=== PATIENT | female | born 1990 | race Caucasian/White ===

== ENCOUNTER 2017-02-03 21:01 | Inpatient (IN) | payer SELFPAY ==
[~2017-02-03] VITALS: Ht 167.6 cm; Wt 88.2 kg
[2017-02-03 21:04] VITALS: BP 149/104; PULSE 93; RESP 14; TEMP 97.8; O2SAT 97
[2017-02-03] MEDS ORDERED: LISI-515 PO (21:11)
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
[2017-02-03] MEDS ORDERED: ONDANSETRON HCL 4 MG/2 ML VIAL IV PUSH ONE (21:30)
[2017-02-03] MEDS ORDERED: SODIUM CHLOR 0.9% 1000 ML INJ 1,000 ML IV ONE (21:30)
[2017-02-03 21:31] VITALS: BP 137/77; PULSE 88; RESP 16; O2SAT 99
[2017-02-03 21:43] LABS: AUTOMATED NEUTROPHIL # 16.3 TH/MM3 (1.8-7.7); BASOPHIL # 0.1 TH/MM3 (0-0.2); BASOPHIL % 0.2 % (0.0-2.0); EOSINOPHIL % 0.1 % (0.0-4.0); HEMO FLAGS DIFF FINAL; LYMPH % 17.3 % (9.0-44.0); LYMPHOCYTE # 3.6 TH/MM3 (1.0-4.8); MEAN CELL VOLUME 77.4 FL (80.0-100.0); MEAN CORPUSCULAR HEMOGLOBIN 24.6 PG (27.0-34.0); MEAN CORPUSCULAR HGB CONC 31.8 % (32.0-36.0); MONO % 3.2 % (0.0-8.0); NEUT % 79.2 % (16.0-70.0); PLATELET COUNT 215 TH/MM3 (150-450); RED CELL DISTRIBUTION WIDTH 15.2 % (11.6-17.2); WHITE BLOOD COUNT 20.6 TH/MM3 (4.0-11.0)
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
[2017-02-03] MEDS ORDERED: IOHEXOL 350 MG/ML 10 ML VIAL (for RAD DIAG) IV ONE (21:48)
[2017-02-03 21:52] LABS: APTT (PATIENT) 26.6 SEC (24.3-30.1); PROTHROMBIN TIME - PATIENT 10.6 SEC (9.8-11.6)
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
[2017-02-03 22:00] LABS: BICARBONATE 27.2 MEQ/L (21.0-32.0); POTASSIUM 3.6 MEQ/L (3.5-5.1)
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
--- NOTE | 2017-02-03 22:15 | RADRPT ---
EXAM DATE/TIME: 02/03/2017 22:08 [facility] COMPARISON: No previous studies available for comparison. INDICATIONS : Shortness of breath. MEDICAL HISTORY : None. SURGICAL HISTORY : None. ENCOUNTER: Initial ACUITY: 1 day PAIN SCORE: 0/10 LOCATION: chest FINDINGS: A single view of the chest demonstrates the lungs to be symmetrically aerated without evidence of mas s, infiltrate or effusion. The cardiomediastinal contours are unremarkable. Osseous structures are intact. CONCLUSION: Normal examination. Tyshawn Denny MD on February 03, 2017 at 22:14 Board Certified Radiologist. This report was verified electronically.
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
[2017-02-03 22:42] LABS: BLOOD, URINE NEG (NEG); GLUCOSE,URINE NEG (NEG); KETONE, URINE 10 mg/dL (NEG); NITRITE,URINE NEG (NEG); PH, URINE 6.5 (5.0-8.5); SQUAMOUS EPITHELIAL CELL URINE 1 /hpf (0-5); URINE COLOR LIGHT-YELLOW (YELLW/STRAW)
[2017-02-03] MEDS ORDERED: CHLORHEXIDINE GLUCONATE 2 % 1 PACK (2 CLOTHS) TOP PRN (22:45)
[2017-02-03] MEDS ORDERED: ONDANSETRON HCL 4 MG/2 ML VIAL IV PRN (22:45)
[2017-02-03] MEDS ORDERED: ACETAMINOPHEN 325 MG TAB PO PRN (22:45)
[2017-02-03] MEDS ORDERED: MAGNESIUM HYDROXIDE SUSP 30 ML CUP PO PRN (22:45)
[2017-02-03] MEDS ORDERED: oxyCODONE/ACETAMINOPHEN 5 MG/325 MG TAB PO PRN (22:45)
[2017-02-03] MEDS ORDERED: SODIUM CHLORIDE 0.9% FLUSH 10 ML FLUSH IV FLUSH PRN (22:45)
[2017-02-03] MEDS ORDERED: MISCELLANEOUS NURSING INFORMATION XX SCH (22:45)
[2017-02-03] MEDS ORDERED: LACTULOSE SYRUP 20 GM/30 ML CUP PO PRN (22:45)
[2017-02-03] MEDS ORDERED: SENNOSIDES 8.6 MG TAB PO PRN (22:45)
[2017-02-03] MEDS ORDERED: BISACODYL 10 MG SUPP RECTAL PRN (22:45)
[2017-02-03 22:46] LABS: COMMENT (UR) CULT NOT INDICATED; CULTURE IF INDICATED CULT NOT INDICATED
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
[2017-02-03 22:47] LABS: AMPHETAMINE, URINE NEG (NEG); BARBITURATES, URINE NEG (NEG); COCAINE, URINE NEG (NEG)
[2017-02-03 23:11] VITALS: BP 126/57; PULSE 76; RESP 16; O2SAT 99
[2017-02-03] MEDS: oxyCODONE/ACETAMINOPHEN 5 MG/325 MG TAB PO PRN (23:14)
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
[2017-02-04] VITALS (8 sets, daily range): BP systolic 115–125; BP diastolic 56–70; PULSE 58–88; RESP 12–19; TEMP 98.1–98.5; O2SAT 98–99
[2017-02-04] MEDS: CHLORHEXIDINE GLUCONATE 2 % 1 PACK (2 CLOTHS) TOP SCH (04:00)
[2017-02-04 04:36] LABS: AUTOMATED NEUTROPHIL # 10.4 TH/MM3 (1.8-7.7); BASOPHIL % 0.3 % (0.0-2.0); HEMATOCRIT 37.8 % (35.0-46.0); HEMO FLAGS DIFF FINAL; LYMPH % 13.2 % (9.0-44.0); LYMPHOCYTE # 1.8 TH/MM3 (1.0-4.8); MEAN CELL VOLUME 77.4 FL (80.0-100.0); MEAN CORPUSCULAR HGB CONC 32.3 % (32.0-36.0); MONO % 8.7 % (0.0-8.0); NEUT % 77.8 % (16.0-70.0); PLATELET COUNT 202 TH/MM3 (150-450); RED BLOOD COUNT 4.88 MIL/MM3 (4.00-5.30); RED CELL DISTRIBUTION WIDTH 15.1 % (11.6-17.2); WHITE BLOOD COUNT 13.4 TH/MM3 (4.0-11.0)
[2017-02-04 04:49] LABS: BICARBONATE 26.9 MEQ/L (21.0-32.0); POTASSIUM 3.6 MEQ/L (3.5-5.1)
--- NOTE | 2017-02-04 06:03 | RADRPT ---
EXAM DATE/TIME: 02/04/2017 04:58 [facility] COMPARISON: CT BRAIN W/O CONTRAST, February 03, 2017, 21:44. INDICATIONS : Follow up hemorrhage. RADIATION DOSE: 35.74 CTDIvol (mGy) MEDICAL HISTORY : None SURGICAL HISTORY : None. ENCOUNTER: Subsequent ACUITY: 1 day PAIN SCALE: 6/10 LOCATION: cranial TECHNIQUE: Multiple contiguous axial images were obtained of the head. Using automated exposure control and adj ustment of the mA and/or kV according to patient size, radiation dose was kept as low as reasonably a chievable to obtain optimal diagnostic quality images. FINDINGS: CEREBRUM: There is a tiny amount of hemorrhage along the right temporal tip . The ventricles are normal for ag e. No evidence of midline shift, mass lesion, hemorrhage or acute infarction. No extra-axial fluid collections are seen. POSTERIOR FOSSA: The cerebellum and brainstem are intact. The 4th ventricle is midline. The cerebellopontine angle i s unremarkable. EXTRACRANIAL: The visualized portion of the orbits is intact. Trace fluid in the right maxillary sinus SKULL: The calvaria is intact. No evidence of skull fracture. The lucency identified previously appears to be symmetric therefore is likely a suture CONCLUSION: Very small amount of increased density along the right temporal tip subarachnoid versus small parench ymal hemorrhage. Its knob are impressive, similar to the previous study. The lucency felt to be a fra cture previously and is symmetric on today's exam therefore is likely an old suture. There is some ov erlying soft tissue swelling in the right temporal region. Mehrdad Miller MD on February 04, 2017 at 5:59 Board Certified Radiologist. This report was verified electronically.
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
[2017-02-04] MEDS: DOCUSATE SODIUM 50 MG/SENNA 8.6 MG TAB PO SCH ×2 (09:00→21:40)
[2017-02-04] MEDS: FAMOTIDINE 20 MG TAB PO SCH ×2 (09:00→21:39)
[2017-02-04] MEDS: SODIUM CHLORIDE 0.9% FLUSH 10 ML FLUSH IV FLUSH SCH ×2 (09:00→21:40)
[2017-02-04] MEDS: oxyCODONE/ACETAMINOPHEN 5 MG/325 MG TAB PO PRN ×2 (09:08→16:38)
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
[2017-02-04] MEDS: MUPIROCIN 2% OINT 1 APPLIC/GM SYR EACH NARE SCH (21:40)
[2017-02-05] VITALS: BP 112/63; PULSE 59; RESP 16; TEMP 98; O2SAT 98
[2017-02-05 04:00] VITALS: BP 107/62; PULSE 61; RESP 18; TEMP 97.8; O2SAT 98
[2017-02-05] MEDS: CHLORHEXIDINE GLUCONATE 2 % 1 PACK (2 CLOTHS) TOP SCH (04:00)
[2017-02-05 07:35] VITALS: BP 120/67; PULSE 58; RESP 17; TEMP 97.1; O2SAT 97
[2017-02-05 08:39] LABS: AUTOMATED NEUTROPHIL # 4.2 TH/MM3 (1.8-7.7); BASOPHIL # 0.1 TH/MM3 (0-0.2); BASOPHIL % 0.9 % (0.0-2.0); EOSINOPHIL # 0.2 TH/MM3 (0-0.4); HEMATOCRIT 38.7 % (35.0-46.0); HEMO FLAGS DIFF FINAL; LYMPH % 29.4 % (9.0-44.0); LYMPHOCYTE # 2.1 TH/MM3 (1.0-4.8); MEAN CELL VOLUME 78.7 FL (80.0-100.0); MEAN CORPUSCULAR HEMOGLOBIN 24.8 PG (27.0-34.0); MEAN CORPUSCULAR HGB CONC 31.5 % (32.0-36.0); MONO % 8.6 % (0.0-8.0); NEUT % 58.1 % (16.0-70.0); PLATELET COUNT 186 TH/MM3 (150-450); RED BLOOD COUNT 4.92 MIL/MM3 (4.00-5.30); WHITE BLOOD COUNT 7.2 TH/MM3 (4.0-11.0)
[2017-02-05] MEDS: FAMOTIDINE 20 MG TAB PO SCH (08:52)
[2017-02-05] MEDS: oxyCODONE/ACETAMINOPHEN 5 MG/325 MG TAB PO PRN ×2 (08:52→17:22)
[2017-02-05] MEDS: DOCUSATE SODIUM 50 MG/SENNA 8.6 MG TAB PO SCH (08:52)
[2017-02-05] MEDS: SODIUM CHLORIDE 0.9% FLUSH 10 ML FLUSH IV FLUSH SCH (08:52)
[2017-02-05 09:11] LABS: ALKALINE PHOSPHATASE 72 U/L (45-117); ALT (GPT) 21 U/L (10-53); ANION GAP 6 MEQ/L (5-15); AST (GOT) 14 U/L (15-37); BICARBONATE 29.6 MEQ/L (21.0-32.0); BLOOD UREA NITROGEN 9 MG/DL (7-18); CHLORIDE 104 MEQ/L (98-107); GLOMERULAR FILTRATION RATE 100 ML/MIN (>89); SODIUM (NA) 140 MEQ/L (136-145); TOTAL BILIRUBIN ADULT 0.6 MG/DL (0.2-1.0)
[2017-02-05] MEDS: MUPIROCIN 2% OINT 1 APPLIC/GM SYR EACH NARE SCH (09:20)
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
[2017-02-05 11:25] VITALS: BP 117/62; PULSE 69; RESP 17; TEMP 96.7; O2SAT 99
[2017-02-05 15:40] VITALS: BP 120/79; PULSE 68; RESP 17; TEMP 98; O2SAT 98
[2017-02-05] MEDS ORDERED: LISI-515 PO (15:51)
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
[2017-02-06] MEDS ORDERED: LISINOPRIL 20 MG TAB PO SCH (09:00)
== END 2017-02-05 17:35 | disposition home or self-care (01) | DRG 87 ==
LOC: NEPE 21:01 → NEDA 22:34 → N03A 23:26 → N05B 02-04 19:01
PROVIDERS: ADMIT Surgery Trauma Surgery; ATTEND Surgery Trauma Surgery
DX: S06.340A Traumatic hemorrhage of right cerebrum without loss of consciousness, initial encounter (principal); I10 Essential (primary) hypertension; S02.19XA Other fracture of base of skull, initial encounter for closed fracture; S06.0X0A Concussion without loss of consciousness, initial encounter; Y92.410 Unspecified street and highway as the place of occurrence of the external cause; V27.0XXA Motorcycle driver injured in collision with fixed or stationary object in nontraffic accident, initial encounter
CPT/HCPCS: 70450; 71010; 71260; 72125; 72128; 72131; 74177; 80048; 80053; 80307; 81001; 84703; 85025; 85610; 85730; 87641; 94150; 96361; 96374; J2405; J7030; Q9967

== ENCOUNTER 2017-02-16 17:40 | Emergency (ER) | payer SELFPAY ==
[~2017-02-16] VITALS: Ht 165.1 cm; Wt 80.0 kg
[~2017-02-16 17:40] MED LIST: LISI-515 PO
[2017-02-16 17:43] VITALS: BP 178/99; PULSE 89; RESP 15; TEMP 98.2; O2SAT 98
[2017-02-16] MEDS ORDERED: birth control pills PO (18:39)
[2017-02-16] MEDS ORDERED: KETOROLAC TROMETHAMINE 60 MG/2 ML (IM) VIAL IM ONE (19:30)
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
[2017-02-16] MEDS ORDERED: TYLE325T PO (21:33)
[2017-02-16 21:35] VITALS: BP 126/72; PULSE 70; RESP 16; O2SAT 98
== END 2017-02-16 22:11 | disposition home or self-care (01) ==
LOC: NEPC 17:40
DX: R07.81 Pleurodynia (principal); I10 Essential (primary) hypertension; Z86.59 Personal history of other mental and behavioral disorders; Z86.79 Personal history of other diseases of the circulatory system; Z87.19 Personal history of other diseases of the digestive system
CPT/HCPCS: 71101; 96372; 99284; J1885

== ENCOUNTER 2017-11-02 17:07 | Emergency (ER) | payer SELFPAY ==
[~2017-11-02] VITALS: Ht 165.1 cm; Wt 59.0 kg
[~2017-11-02 17:07] MED LIST changes: +TYLE325T PO; +birth control pills PO
[2017-11-02 17:08] VITALS: BP 131/62; PULSE 86; RESP 18; TEMP 99; O2SAT 99
--- NOTE | 2017-11-02 17:44 | PD ---
HPI Chief Complaint: Complaint Time Seen by Provider: 17:33 Travel History International Travel<30 days: No Contact w/Intl Traveler<30days: No Traveled to known affect area: No History of Present Illness HPI 26-year-old female presents for evaluation of dysuria. Symptoms are yesterday. There is associated increased urinary frequency and hesitancy. She reports that she has had urinary tract infections in the past and this feels similar. Symptoms are mild, aggravated by urinating with no alleviating factors. Denies flank pain, abdominal pain, nausea or vomiting, fevers or chills, vaginal bleeding or discharge. She has no other complaints at this time. PFSH Past Medical History Anxiety: Yes Depression: Yes Cancer: No Cardiovascular Problems: Yes (HTN) Endocrine: No Gastrointestinal Disorders: Yes GERD: Yes (GERD) Genitourinary: Yes (STATES HAD UTI PREVIOUSLY) Hypertension: Yes Immune Disorder: No Neurologic: No Reproductive: No Respiratory: No Immunizations Current: Yes ?: Not Social History Alcohol Use: No Tobacco Use: No Substance Use: No Allergies-Medications (Allergen,Severity, Reaction): Coded Allergies: No Known Allergies (Unverified , 02/05/17) Reported Meds & Prescriptions Reported Meds & Active Scripts Active Pyridium (Phenazopyridine HCl) 100 Mg Tab 100 Mg PO Q8HR 3 Days Macrobid (Nitrofurantoin Monohydrate Macrocrystals) 100 Mg Capsule 100 Mg PO BID 7 Days Tylenol (Acetaminophen) 325 Mg Tab 650 Mg PO Q6H PRN Lisinopril 20 Mg Tab 20 Mg PO DAILY Reported [ control pills] PO DAILY Review of Systems Except as stated in HPI: all other systems reviewed are Neg Physical Exam Narrative GENERAL: Well-nourished female in no acute distress SKIN: Warm and dry. CARDIOVASCULAR: Regular rate and rhythm. No murmur appreciated. RESPIRATORY: No accessory muscle use. Clear to auscultation. Breath sounds equal bilaterally. GASTROINTESTINAL: Abdomen soft, non-tender, nondistended. Hepatic and splenic margins not palpable. No CVA tenderness. Data Data Last Documented VS Vital Signs Date Time Temp Pulse Resp B/P (MAP) Pulse Ox O2 Delivery O2 Flow Rate FiO2 11/02/17 17:08 99.0 86 18 131/62 (85) 99 Room Air Orders Orders Urinalysis - C+S If Indicated (11/02/17 17:34) Ed Urine Pregnancytest Poc (11/02/17 17:34) Urine Culture (11/02/17 17:35) Labs Laboratory Tests Test 11/02/17 17:35 Urine Color YELLOW Urine Turbidity CLOUDY Urine pH 6.0 Urine Specific Antlers 1.024 Urine Protein 30 mg/dL Urine Glucose (UA) NEG mg/dL Urine Ketones NEG mg/dL Urine Occult Blood LARGE Urine Nitrite NEG Urine Bilirubin NEG Urine Urobilinogen 2.0 MG/DL Urine Leukocyte Esterase LARGE Urine RBC /hpf Urine WBC /hpf Urine Squamous Epithelial Cells 1 /hpf Urine Transitional Epithelial Cells 1 /hpf Urine Bacteria OCC /hpf Urine Mucus FEW /lpf Microscopic Urinalysis Comment CULTURE INDICATED MDM Medical Decision Making Medical Screen Exam Complete: Yes Emergency Medical Condition: Yes Medical Record Reviewed: Yes Differential Diagnosis Cystitis, urethritis, pyelonephritis Narrative Course Patient's urinalysis and symptoms are consistent with urinary tract infection. Pending culture results the patient is being discharged with Macrobid and Pyridium for her symptoms. Diagnosis Primary Impression: Urinary tract infection Additional Instructions: Medication as prescribed. Stay well-hydrated. Return for any emergent medical conditions. Med/Other Pt SpecificInfo: Prescription(s) given Scripts Phenazopyridine (Pyridium) 100 Mg Tab 100 MG PO Q8HR for Dysuria for 3 Days, TAB 0 Refills Prov: Juan Hampton MD 11/02/17 Nitrofurantoin Monohydrate Macrocrystals (Macrobid) 100 Mg Capsule 100 MG PO BID for Infection for 7 Days, #14 CAP 0 Refills Prov: Juan Hampton MD 11/02/17 Disposition: 01 DISCHARGE HOME Condition: Stable [place] Huang Nov 02, 2017 17:44
[2017-11-02 18:14] LABS: BACTERIA, URINE OCC /hpf; BILIRUBIN, URINE NEG (NEG); BLOOD, URINE LARGE (NEG); GLUCOSE,URINE NEG (NEG); KETONE, URINE NEG (NEG); MUCUS URINE FEW /lpf (OCC); NITRITE,URINE NEG (NEG); SQUAMOUS EPITHELIAL CELL URINE 1 /hpf (0-5); TRANSITIONAL EPI CELLS, URINE 1 /hpf; URINE COLOR YELLOW (YELLW/STRAW); URINE LEUKOCYTE ESTERASE LARGE (NEG)
[2017-11-02] MEDS ORDERED: MACR100C2 PO (18:19)
[2017-11-02] MEDS ORDERED: PHEN0.4T PO (18:19)
== END 2017-11-02 18:29 | disposition home or self-care (01) ==
LOC: NEPK 17:07
DX: N39.0 Urinary tract infection, site not specified (principal); I10 Essential (primary) hypertension
CPT/HCPCS: 81001; 84703; 87086; 99283